=== PATIENT | male | born 1945 | race Caucasian/White ===

== ENCOUNTER 2016-11-22 10:18 | Inpatient (IN) | payer OTHER, MEDICARE ==
[~2016-11-22] VITALS: Ht 162.6 cm; Wt 177.2 kg
[2016-11-22] VITALS (10 sets, daily range): BP systolic 114–161; BP diastolic 50–67; PULSE 82–90; RESP 18–22; TEMP 96.9–99.7; O2SAT 91–98
[~2016-11-22 10:18] MED LIST: ALBU1AER INH; CLOP75 PO; GLUMETZA PO; HUMALOG SQ; LANTUSP SQ; METO100T PO; NIAS10004 PO; VASO10TA8 PO; ZITH500T PO
[2016-11-22] MEDS ORDERED: PANT40TA3 PO (10:54)
[2016-11-22] MEDS ORDERED: FERR325T PO (10:54)
[2016-11-22] MEDS ORDERED: FLUT1INH7 INH (10:54)
[2016-11-22] MEDS ORDERED: PLAV75TA29 PO (10:54)
[2016-11-22] MEDS ORDERED: CHOL1CHW5 CHEW (10:54)
[2016-11-22] MEDS ORDERED: AMLO10TA2 PO (10:54)
[2016-11-22] MEDS ORDERED: ASPI1TAB69 PO (10:54)
[2016-11-22] MEDS ORDERED: FURO20TA PO (10:54)
[2016-11-22] MEDS ORDERED: ATOR20TA15 PO (10:54)
[2016-11-22] MEDS ORDERED: TOPR50TA PO (10:54)
[2016-11-22] MEDS ORDERED: PANTOPRAZOLE INJ 80 MG in SODIUM CHLORIDE 0.9% INJ 100 ML IV SCH (11:00)
[2016-11-22] MEDS ORDERED: PANTOPRAZOLE INJ 80 MG in SODIUM CHLORIDE 0.9% INJ 35 ML IV ONE (11:00)
[2016-11-22] MEDS ORDERED: SODIUM CHLORIDE 0.9% FLUSH 10 ML FLUSH IVF PRN (11:00)
[2016-11-22] MEDS ORDERED: humalog (11:05)
[2016-11-22] MEDS ORDERED: LANTUS2P SQ (11:05)
[2016-11-22 11:20] LABS: BASOPHIL # 0.1 TH/MM3 (0-0.2); BASOPHIL % 0.5 % (0.0-2.0); EOSINOPHIL # 0.1 TH/MM3 (0-0.4); EOSINOPHIL % 0.8 % (0.0-4.0); HEMATOCRIT 25.2 % (39.0-51.0); HEMO FLAGS DIFF FINAL; LYMPH % 11.3 % (9.0-44.0); LYMPHOCYTE # 1.3 TH/MM3 (1.0-4.8); MEAN CELL VOLUME 94.9 FL (80.0-100.0); MEAN CORPUSCULAR HEMOGLOBIN 30.7 PG (27.0-34.0); MEAN CORPUSCULAR HGB CONC 32.4 % (32.0-36.0); MONO % 6.5 % (0.0-8.0); NEUT % 80.9 % (16.0-70.0); PLATELET COUNT 180 TH/MM3 (150-450); RED BLOOD COUNT 2.66 MIL/MM3 (4.50-5.90); RED CELL DISTRIBUTION WIDTH 15.8 % (11.6-17.2); WHITE BLOOD COUNT 11.2 TH/MM3 (4.0-11.0)
[2016-11-22 11:36] LABS: CHLORIDE 91 MEQ/L (98-107); POTASSIUM 4.5 MEQ/L (3.5-5.1); SODIUM (NA) 133 MEQ/L (136-145)
[2016-11-22 11:40] LABS: ANION GAP 11 MEQ/L (5-15); BICARBONATE 31.5 MEQ/L (21.0-32.0); BLOOD UREA NITROGEN 29 MG/DL (7-18)
[2016-11-22 11:41] LABS: APTT (PATIENT) 28.7 SEC (24.3-30.1)
[2016-11-22 11:43] LABS: ALT (GPT) 36 U/L (12-78); AST (GOT) 29 U/L (15-37); GLOMERULAR FILTRATION RATE 40 ML/MIN (>89)
[2016-11-22 11:45] LABS: TOTAL BILIRUBIN ADULT 0.4 MG/DL (0.2-1.0)
--- NOTE | 2016-11-22 12:04 | PD ---
HPI Chief Complaint: GI Complaint Time Seen by Provider: 10:45 Travel History International Travel<30 days: No Contact w/Intl Traveler<30days: No Traveled to known affect area: No History of Present Illness HPI 71-year-old male presents with rectal bleeding and abdominal pain. He states he has history where he's had to have multiple blood transfusions in the past from a bleeding ulcer. Quality of bleeding is black stool. Severity is past couple of days. He is from [place] and will be here for 2 more days. He is on Plavix in terms of blood thinner medication. Quality of pain is crampy. Location is diffuse. He denies specific modifying factors. His helps supplement history. She states he had 3 units of blood transfused in August when he had issues with bleeding with a blood level of 5. She states at that time he had an ulcer and they put him on Protonix. She states he didn't take any of his morning medications this morning. That includes his U500 insulin which she takes 20 units in the morning 20 units Sunday and 16 at night with his Lantus PFSH Past Medical History Hx Anticoagulant Therapy: Yes (plavix) Arthritis: Yes Cardiovascular Problems: Yes (htn on meds, UT, stents, valve replacements) High Cholesterol: Yes Congestive Heart Failure: Yes (just newly put on a diuretic) COPD: Yes Cerebrovascular Accident: Yes (tia) Coronary Artery Disease: Yes Diabetes: Yes (type 1) Gastrointestinal Disorders: Yes (ulcer) GERD: Yes Hypertension: Yes Respiratory: Yes (copd, oxygen at 3 lpm) Myocardial Infarction: Yes Sleep Apnea: Yes Tetanus Vaccination: Unknown Past Surgical History AICD: No Appendectomy: No Arteriovenous Shunt: No Cardiac Surgery: Yes (stents x 3) Cholecystectomy: Yes Coronary Artery Bypass Graft: Yes (x2 aortic valve replacement) Ear Surgery: No Endocrine Surgery: No Eye Surgery: Yes (eye surgery lens replacement x 2) Genitourinary Surgery: No Gynecologic Surgery: No Insulin Pump: No Joint Replacement: Yes (left knee) Oral Surgery: No Pacemaker: No Thoracic Surgery: Yes (heart valve/bypass) Social History Alcohol Use: No Tobacco Use: No Substance Use: No Allergies-Medications (Allergen,Severity, Reaction): Coded Allergies: No Known Allergies (Verified , 11/15/09) Reported Meds & Prescriptions Reported Meds & Active Scripts Active Reported [humalog] Lantus Inj (Insulin Glargine) 1,000 Unit/10 Ml Vial 100 Units SQ HS Breo Ellipta Inh (Fluticasone/Vilanterol) 200-25 Mcg/Act Inh 1 Puff INH DAILY Use daily at the same time. Vitamin D3 (Cholecalciferol) 2,000 Unit Chew 2,000 Units CHEW DAILY Atorvastatin (Atorvastatin Calcium) 20 Mg Tab 20 Mg PO HS Toprol XL (Metoprolol Succinate) 50 Mg Tab 75 Mg PO DAILY Pantoprazole (Pantoprazole Sodium) 40 Mg Tab 40 Mg PO DAILY Amlodipine (Amlodipine Besylate) 10 Mg Tab 10 Mg PO DAILY Plavix (Clopidogrel Bisulfate) 75 Mg Tab 75 Mg PO DAILY Furosemide 20 Mg Tab 20 Mg PO DAILY Ferrous Sulfate 325 Mg Tab 325 Mg PO DAILY Aspirin 81 Mg Tabdr 81 Mg PO DAILY Review of Systems Except as stated in HPI: all other systems reviewed are Neg Physical Exam Narrative GENERAL: Well-nourished, well-developed patient. SKIN: Warm and dry. Pale HEAD: Normocephalic and atraumatic. EYES: No injection or drainage. ENT: No nasal drainage noted. NECK: Supple, trachea midline. CARDIOVASCULAR: Regular rate and rhythm RESPIRATORY: No increased effort. No accessory muscle use. GASTROINTESTINAL: Abdomen soft, mild tenderness diffusely, nondistended. No rebound or guarding RECTAL EXAM: Performed with anchorer and after permission. No large external hemorrhoid or fissure, stool is dark brown NEUROLOGICAL: Awake and alert. Moves all extremities. Normal speech. Data Data Last Documented VS Vital Signs Date Time Temp Pulse Resp B/P Pulse Ox O2 Delivery O2 Flow Rate FiO2 11/22/16 12:35 82 22 140/51 95 Nasal Cannula 2 11/22/16 10:26 99.7 Orders Complete Blood Count With Diff (11/22/16 10:49) Comprehensive Metabolic Panel (11/22/16 10:49) Lipase (11/22/16 10:49) Prothrombin Time / Inr (Pt) (11/22/16 10:49) Act Partial Throm Time (Ptt) (11/22/16 10:49) Type And Screen (11/22/16 10:49) Ecg Monitoring (11/22/16 10:49) Iv Access Insert/Monitor (11/22/16 10:49) Oximetry (11/22/16 10:49) Sodium Chloride 0.9% Flush (Ns Flush) (11/22/16 11:00) Ct Abd/Pel W Iv Contrast(Rout) (11/22/16 ) Pantoprazole Inj (Protonix Inj) (11/22/16 11:00) Pantoprazole Inj (Protonix Inj) (11/22/16 11:00) Chest, Single Ap (11/22/16 ) Iodixanol 320 Inj (Rad Ct) (Visipaque 32 (11/22/16 13:16) Insulin Human Regular Inj (Novolin R Inj (11/22/16 13:30) Admit Order (Ed Use Only) (11/22/16 13:30) Consult Gastroenterology (11/22/16 ) Labs Laboratory Tests Test 11/22/16 11:00 White Blood Count 11.2 TH/MM3 Red Blood Count 2.66 MIL/MM3 Hemoglobin 8.2 GM/DL Hematocrit 25.2 % Mean Corpuscular Volume 94.9 FL Mean Corpuscular Hemoglobin 30.7 PG Mean Corpuscular Hemoglobin 32.4 % Concent Red Cell Distribution Width 15.8 % Platelet Count 180 TH/MM3 Mean Platelet Volume 9.9 FL Neutrophils (%) (Auto) 80.9 % Lymphocytes (%) (Auto) 11.3 % Monocytes (%) (Auto) 6.5 % Eosinophils (%) (Auto) 0.8 % Basophils (%) (Auto) 0.5 % Neutrophils # (Auto) 9.0 TH/MM3 Lymphocytes # (Auto) 1.3 TH/MM3 Monocytes # (Auto) 0.7 TH/MM3 Eosinophils # (Auto) 0.1 TH/MM3 Basophils # (Auto) 0.1 TH/MM3 CBC Comment DIFF FINAL Differential Comment Prothrombin Time 11.0 SEC Prothromb Time International 1.0 RATIO Ratio Activated Partial 28.7 SEC Thromboplast Time Sodium Level 133 MEQ/L Potassium Level 4.5 MEQ/L Chloride Level 91 MEQ/L Carbon Dioxide Level 31.5 MEQ/L Anion Gap 11 MEQ/L Blood Urea Nitrogen 29 MG/DL Creatinine 1.70 MG/DL Estimat Glomerular Filtration 40 ML/MIN Rate Random Glucose 665 MG/DL Calcium Level 8.3 MG/DL Total Bilirubin 0.4 MG/DL Aspartate Amino Transf 29 U/L (AST/SGOT) Alanine Aminotransferase 36 U/L (ALT/SGPT) Alkaline Phosphatase 134 U/L Total Protein 6.7 GM/DL Albumin 2.7 GM/DL Lipase 90 U/L Blood Type O POSITIVE Antibody Screen NEGATIVE MDM Medical Decision Making Medical Screen Exam Complete: Yes Emergency Medical Condition: Yes Medical Record Reviewed: Yes (past history confirm) Interpretation(s) CBC & BMP Diagram 11/22/16 11:00 Last 24 hours Impressions Abdomen/Pelvis CT 11/22/16 0000 Signed Impressions: Service Date/Time: Tuesday, November 22, 2016 12:07 - CONCLUSION: 1. No definite abnormality to explain the patient's abdominal pain is identified. 2. No findings to indicate bowel obstruction are seen. Humza Omer MD Differential Diagnosis Anemia, ulcer, diverticulosis, diverticulitis Narrative Course Will check blood work, CT scan and dose with Protonix and reevaluate ct abdomen without emergent findings, will discuss with gi and admit to the hospital for monitoring; patient and updated and agree to admission HemaPrompt Point of Care Internal Pos. & Neg. Controls: Passed Fecal Specimen Occult Blood: Positive Physician Communication Physician Communication dr dejesus agrees to admit, requests 5 units regular insulin IV and states will take from there dr fenton states will see patient, I told her I will keep npo for now Diagnosis Primary Impression: Rectal bleeding Additional Impressions: Anemia Qualified Code: D64.9 - Anemia, unspecified type Renal insufficiency Hyperglycemia due to type 1 diabetes mellitus Ama Rivera MD Nov 22, 2016 12:04 Diagnosis Primary Impression: Rectal bleeding Additional Impression: Anemia Ama Rivera MD Nov 22, 2016 12:04
[2016-11-22 12:20] LABS: ALKALINE PHOSPHATASE 134 U/L (45-117)
--- NOTE | 2016-11-22 12:49 | RADHPO ---
EXAM DATE/TIME: 11/22/2016 12:07 [facility] COMPARISON: No previous studies available for comparison. INDICATIONS : Abdominal pain and black stool. IV CONTRAST: 50 cc Visipaque (iodixanol) IV ORAL CONTRAST: No oral contrast ingested. RADIATION DOSE: 11.68 CTDIvol (mGy) MEDICAL HISTORY : Gastroesophageal reflux disease. Chronic obstructive pulmonary disease. Congestive heart failure.Diab etes. Coronary artery disease. Hypertension. Aortic valve replacement. SURGICAL HISTORY : Cholecystectomy. CABGStents ENCOUNTER: Initial ACUITY: 1 week PAIN SCALE: 9/10 LOCATION: All quadrants. TECHNIQUE: Volumetric scanning of the abdomen and pelvis was performed. Using automated exposure control and ad justment of the mA and/or kV according to patient size, radiation dose was kept as low as reasonably achievable to obtain optimal diagnostic quality images. FINDINGS: The limited portable and is visualized is clear. The appearance of the liver, spleen, pancreas, adrenal glands and kidneys is within normal limits. Th ere is no retroperitoneal lymphadenopathy. No free air or free fluid is identified. The The visualized loops of small and large bowel in the upper abdomen is unremarkable. There is no free fluid within the pelvis. There is no iliac or inguinal adenopathy. The visualized bony structures demonstrate degenerative changes but are otherwise intact. CONCLUSION: 1. No definite abnormality to explain the patient's abdominal pain is identified. 2. No findings to indicate bowel obstruction are seen. Humza Omer MD on November 22, 2016 at 12:35 Board Certified Radiologist. This report was verified electronically.
[2016-11-22] MEDS ORDERED: IODIXANOL 320 MG/ML 10 ML VIAL (for Rad CT) IV ONE (13:16)
[2016-11-22] MEDS ORDERED: INSULIN HUMAN REGULAR 1,000 UNITS/10 ML VIAL IV PUSH ONE (13:30)
--- NOTE | 2016-11-22 13:43 | RADHPO ---
EXAM DATE/TIME: 11/22/2016 12:45 [facility] COMPARISON: CHEST SINGLE AP, November 15, 2009, 19:24. INDICATIONS : Short of breath, heart palpataions. Recently diagnosed with nodules in upper right lung & lower left lung to be biopsied back home in [place]. MEDICAL HISTORY : Hypertension. Myocardial infarction. Hypercholesterolemia. TIA. CHF. CAD. COPD. Emphysema.. Sleep apnea. GERD. Arthritis. Diabetic. Bleeding ulcers. SURGICAL HISTORY : CABG. Cholecystectomy. Total knee replacement, left. Cataract. Cardiac stents. Aortic valve replaceme nts. ENCOUNTER: Initial ACUITY: 2 days PAIN SCORE: 0/10 LOCATION: chest FINDINGS: The patient is post median sternotomy. The heart is enlarged. There are chronic appearing interstitia l changes. Lungs otherwise clear. The visualized bony structures are grossly intact. CONCLUSION: 1. Cardiomegaly and chronic interstitial changes. No acute abnormality. Humza Omer MD on November 22, 2016 at 13:35 Board Certified Radiologist. This report was verified electronically.
[2016-11-22] MEDS ORDERED: GLUCAGON 1 MG/ML VIAL OTHER PRN (13:45)
[2016-11-22] MEDS ORDERED: METOCLOPRAMIDE HCL 10 MG/2 ML VIAL IV PUSH PRN (13:45)
[2016-11-22] MEDS ORDERED: ONDANSETRON HCL 4 MG/2 ML VIAL IVP PRN (13:45)
[2016-11-22] MEDS ORDERED: ACETAMINOPHEN 325 MG TAB PO PRN (13:45)
[2016-11-22] MEDS ORDERED: DEXTROSE 50% IN WATER 50 ML VIAL(D50) IV PUSH PRN (13:45)
[2016-11-22] MEDS ORDERED: NALOXONE HCL 0.4 MG/ML AMP IV PRN (13:45)
[2016-11-22] MEDS ORDERED: MORPHINE SULFATE 4 MG/ML INJ IV PRN (13:45)
[2016-11-22] MEDS ORDERED: SODIUM CHLORIDE 0.9% FLUSH 10 ML FLUSH IV FLUSH PRN (13:45)
[2016-11-22] MEDS ORDERED: SODIUM CHLOR 0.9% 1000 ML INJ 1,000 ML IV SCH (14:00)
[2016-11-22 14:35] LABS: HEMATOCRIT 25.4 % (39.0-51.0); REVIEW FLAG FINAL
[2016-11-22] MEDS: INSULIN DETEMIR 100 UNITS/ML VIAL SQ SCH ×2 (14:41→20:56)
--- NOTE | 2016-11-22 16:52 | HHI.HP ---
[facility] Non-Staff Admission Diagnosis gi bleed, diabetes poor control Diagnoses: Travel History International Travel<30 Days: No Contact w/Intl Traveler <30 Da: No Traveled to Known Affected Are: No History of Present Illness This is a 71 year-old female with past medical history of coronary artery disease status post CABG, GI bleed, congestive heart failure, type 2 diabetes, COPD on 2 L oxygen continuously, bovine aortic valve replacement 2008 who presents with a history of melena and black stools ongoing for 3 weeks. It should be noted that the patient is an extremely poor historian. He states that his girlfriend knows most of his health issues. He's not sure why he was prompted to come to the ER today since this is she's been going on for 3 weeks. He denies any dizziness lightheadedness or syncope. Denies any hematemesis. He thinks he may have had a history of bleeding ulcers in the past. Per the ED physician discussion with his girlfriend, the patient has had GI bleed in the past with hemoglobin down to 5 and was placed on a PPI for a gastric ulcer. The patient states that his stool was runny. The patient states he has chronic shortness of breath but this is not worse than usual. The patient also had some cramping. Umbilical abdominal pain earlier today but this has resolved. Symptoms are moderate, no provocative or alleviating factors. Review of Systems ROS Limitations: Poor Historian Constitutional: DENIES: Fever, Chills Eyes: DENIES: Diplopia, Vision loss Ears, nose, mouth, throat: DENIES: Throat pain, Odynophagia Respiratory: COMPLAINS OF: Shortness of breath, DENIES: Cough Gastrointestinal: COMPLAINS OF: Abdominal pain, Black stools, Bloody stools, DENIES: Constipation, Nausea, Vomiting Genitourinary: DENIES: Hematuria, Dysuria Musculoskeletal: DENIES: Back pain, Neck pain Integumentary: DENIES: Rash Hematologic/lymphatic: DENIES: Lymphadenopathy Neurologic: DENIES: Abnormal gait, Headache Psychiatric: DENIES: Anxiety, Confusion Past Family Social History Past Medical History Coronary artery disease status post bypass Type 2 diabetes Bovine aortic valve in 2009 COPD and chronic respiratory failure on 2 L oxygen continuously Chronic kidney disease Anemia History of gastric ulcers Hypertension GERD CHF Reported Medications Allergies Coded Allergies Type Severity Reaction Last Updated Verified No Known Allergies 11/15/09 Yes Active Scripts Medications Dose Route/Sig Days Date Category Dose Instructions [humalog] 11/22/16 Reported Lantus Inj (Insulin Glargine) 1,000 Unit/10 Ml Vial 100 Units SQ HS 11/22/16 Reported Breo Ellipta Inh (Fluticasone/Vilanterol) 200-25 Mcg/Act Inh 1 Puff INH DAILY 11/22/16 Reported Use daily at the same time. Vitamin D3 (Cholecalciferol) 2,000 Unit Chew 2,000 Units CHEW DAILY 11/22/16 Reported Atorvastatin (Atorvastatin Calcium) 20 Mg Tab 20 Mg PO HS 11/22/16 Reported Toprol XL (Metoprolol Succinate) 50 Mg Tab 75 Mg PO DAILY 11/22/16 Reported Pantoprazole (Pantoprazole Sodium) 40 Mg Tab 40 Mg PO DAILY 11/22/16 Reported Amlodipine (Amlodipine Besylate) 10 Mg Tab 10 Mg PO DAILY 11/22/16 Reported Plavix (Clopidogrel Bisulfate) 75 Mg Tab 75 Mg PO DAILY 11/22/16 Reported Furosemide 20 Mg Tab 20 Mg PO DAILY 11/22/16 Reported Ferrous Sulfate 325 Mg Tab 325 Mg PO DAILY 11/22/16 Reported Aspirin 81 Mg Tabdr 81 Mg PO DAILY 11/22/16 Reported Allergies: Coded Allergies: No Known Allergies (Verified , 11/15/09) Family History Reviewed and noncontributory Social History Positive tobacco use in the past. He lives in [place]. Physical Exam Vital Signs Vital Signs Date Time Temp Pulse Resp B/P Pulse Ox O2 Delivery O2 Flow Rate FiO2 11/22/16 16:05 98.5 83 20 131/50 97 Nasal Cannula 2 11/22/16 15:50 84 18 161/67 97 Nasal Cannula 2 11/22/16 15:50 98.6 84 20 161/67 97 Nasal Cannula 11/22/16 14:47 83 18 136/67 94 Nasal Cannula 2 11/22/16 12:35 82 22 140/51 95 Nasal Cannula 2 11/22/16 11:11 98 2 11/22/16 11:06 18 11/22/16 10:26 99.7 88 20 141/63 91 Physical Exam GENERAL: This is an obese male in no apparent distress. SKIN: Warm and dry. HEAD: Normocephalic. EYES: No scleral icterus. No injection or drainage. NECK: Supple, trachea midline. No JVD or lymphadenopathy. CARDIOVASCULAR: Regular rate and rhythm without murmurs, gallops, or rubs. RESPIRATORY: Breath sounds equal bilaterally. Breath sounds coarse. No accessory muscle use on 2 L oxygen. GASTROINTESTINAL: Bowel sounds present. Abdomen soft, non-tender, nondistended. EXTREMITIES: 1+ edema of ankles bilaterally. NEUROLOGICAL: Awake, alert, and oriented x 3. Non-focal. Laboratory Laboratory Tests Test 11/22/16 11/22/16 11/22/16 11:00 13:36 14:16 White Blood Count 11.2 Red Blood Count 2.66 Hemoglobin 8.2 8.2 Hematocrit 25.2 25.4 Mean Corpuscular Volume 94.9 Mean Corpuscular Hemoglobin 30.7 Mean Corpuscular Hemoglobin 32.4 Concent Red Cell Distribution Width 15.8 Platelet Count 180 Mean Platelet Volume 9.9 Neutrophils (%) (Auto) 80.9 Lymphocytes (%) (Auto) 11.3 Monocytes (%) (Auto) 6.5 Eosinophils (%) (Auto) 0.8 Basophils (%) (Auto) 0.5 Neutrophils # (Auto) 9.0 Lymphocytes # (Auto) 1.3 Monocytes # (Auto) 0.7 Eosinophils # (Auto) 0.1 Basophils # (Auto) 0.1 CBC Comment DIFF FINAL Differential Comment Prothrombin Time 11.0 Prothromb Time International 1.0 Ratio Activated Partial 28.7 Thromboplast Time Sodium Level 133 Potassium Level 4.5 Chloride Level 91 Carbon Dioxide Level 31.5 Anion Gap 11 Blood Urea Nitrogen 29 Creatinine 1.70 Estimat Glomerular Filtration 40 Rate Random Glucose 665 Calcium Level 8.3 Total Bilirubin 0.4 Aspartate Amino Transf 29 (AST/SGOT) Alanine Aminotransferase 36 (ALT/SGPT) Alkaline Phosphatase 134 Total Protein 6.7 Albumin 2.7 Lipase 90 Blood Type O POSITIVE O POSITIVE Antibody Screen NEGATIVE Crossmatch Leukocyte-Reduced Red Blood Cells Blood Bank Comment Result Diagram: 11/22/16 1416 11/22/16 1100 Imaging Last Impressions Chest X-Ray 11/22/16 0000 Signed Impressions: Service Date/Time: Tuesday, November 22, 2016 12:45 - CONCLUSION: 1. Cardiomegaly and chronic interstitial changes. No acute abnormality. Humza Omer MD Abdomen/Pelvis CT 11/22/16 0000 Signed Impressions: Service Date/Time: Tuesday, November 22, 2016 12:07 - CONCLUSION: 1. No definite abnormality to explain the patient's abdominal pain is identified. 2. No findings to indicate bowel obstruction are seen. Humza Omer MD Assessment and Plan Problem List: (1) GI bleeding ICD Code: K92.2 Status: Acute (2) CHF (congestive heart failure) ICD Code: I50.9 Status: Acute (3) Anemia due to acute blood loss ICD Code: D62 Status: Acute (4) CKD (chronic kidney disease) stage 3, GFR 30-59 ml/min ICD Code: N18.3 Status: Acute (5) KATHLEEN (acute kidney injury) ICD Code: N17.9 Status: Acute (6) DM type 2, uncontrolled, with renal complications ICD Code: E11.29 Status: Acute (7) CAD (coronary artery disease) ICD Code: I25.10 Status: Acute Assessment and Plan -GI bleeding with melena and black stools. Symptoms ongoing for 3 weeks as per the patient. Hemoglobin is 8. He is hemodynamically stable. We'll transfuse 1 unit packed red blood cells given his cardiac history. H&H every 6 hours. Consult GI. Protonix drip. He does have history of peptic ulcer disease with hemoglobin down to 5 in the past. Obviously we'll have to hold aspirin and Plavix at this time. Clear liquid diet. -Type 2 diabetes - with hyperglycemia. Given 5 units of regular insulin in the ED. We'll give Levemir 10 units subcutaneous twice a day to start now. Medium sliding scale insulin with Accu-Cheks. He is on u500 at home as well as Lantus. -Coronary artery disease status post bypass - hold aspirin and Plavix but continue Coreg. -Bovine aortic valve in 2008-hold aspirin. -COPD and chronic respiratory failure on 2 L oxygen continuously - continue O2. Duo nebs when necessary. -Chronic kidney disease - with possible acute kidney injury. We'll repeat BMP in the morning. -Anemia of acute blood loss due to GI bleeding. Monitor H&H every 6 hours. -Hypertension -continue home medications with hold parameters. -GERD - continue PPI. -CHF - avoid IV fluids. Monitor for any overload. He appears compensated. Last known echo was in 2008 showed preserved EF. -DVT prophylaxis with SCDs. Shani Christiansen MD Nov 22, 2016 16:52
[2016-11-22] MEDS: INSULIN ASPART SUPPLEMENTAL SCALE SQ SCH ×2 (17:14→20:59)
[2016-11-22 20:20] LABS: HEMATOCRIT 26.6 % (39.0-51.0); REVIEW FLAG FINAL
[2016-11-22] MEDS: PANTOPRAZOLE INJ 80 MG in SODIUM CHLORIDE 0.9% INJ 100 ML IV SCH (20:55)
[2016-11-22] MEDS: SODIUM CHLORIDE 0.9% FLUSH 10 ML FLUSH IV FLUSH SCH (20:55)
[2016-11-22] MEDS: ATORVASTATIN 20 MG TAB PO SCH (20:56)
[2016-11-23] VITALS (8 sets, daily range): BP systolic 94–184; BP diastolic 51–75; PULSE 77–96; RESP 15–20; TEMP 96.5–97.8; O2SAT 95–98
[2016-11-23] MEDS: PANTOPRAZOLE INJ 80 MG in SODIUM CHLORIDE 0.9% INJ 100 ML IV SCH ×2 (01:45→11:45)
[2016-11-23 02:04] LABS: HEMATOCRIT 27.4 % (39.0-51.0); REVIEW FLAG FINAL
[2016-11-23] MEDS: INSULIN ASPART SUPPLEMENTAL SCALE SQ SCH ×4 (06:21→21:09)
[2016-11-23 06:29] LABS: HEMATOCRIT 28.1 % (39.0-51.0); REVIEW FLAG FINAL
[2016-11-23 06:35] LABS: POTASSIUM 4.2 MEQ/L (3.5-5.1)
[2016-11-23 06:38] LABS: BICARBONATE 34.9 MEQ/L (21.0-32.0)
--- NOTE | 2016-11-23 07:34 | MB ---
cc: SYDNEE LUQUE M.D. DATE OF CONSULTATION 11/23/2016 DATE OF [address] Christiansen REASON FOR CONSULTATION Anemia, melena HISTORY Mr. Hinds is a 71-year-old gentleman with multiple medical problems admitted to the hospital with uncontrolled diabetes mellitus for two to three weeks. The patient is a very poor historian. He has multiple medical problems. Information is taken mostly from the chart. According to his family, he had a history of similar issues before and he was given two units of PRBC at that time. He was diagnosed with a gastric ulcer. The patient also reports some loose stools dark in nature. Denies any nausea or vomiting. He did have some abdominal pain which resolved at this time. CT of the abdomen and pelvis was negative. PAST MEDICAL HISTORY 1. CABG 2. CHF 3. Type 2 diabetes 4. COPD on two liters oxygen. 5. Bovine aortic valve replacement in 2008 6. History of peptic ulcer disease. 7. Morbid obesity 8. Chronic kidney disease 9. Reflux MEDICATIONS 1. Lantus 2. Brilinta 3. Vitamin D3 4. Atorvastatin 5. Toprol 6. Protonix 7. Amlodipine 8. Plavix 9. Lasix 10. Iron 11. Aspirin ALLERGIES No known allergies. FAMILY HISTORY No family history of colon cancer or any other GI pathology. SOCIAL HISTORY He denies any drug use. He has a history of smoking, no alcohol. ALLERGIES No known allergies. REVIEW OF SYSTEMS He denies any fever or chills, weight loss or weight gain. ENT: No alteration in baseline hearing or visual acuity PULMONARY: He does have shortness of breath. Denies any cough. CARDIOVASCULAR: Denies any palpitations. He does have some pedal edema and shortness of breath. GASTROINTESTINAL: As above. GENITOURINARY: Denies dysuria or hematuria. HEMATOLOGIC: Does have history of anemia and no bleeding disorder. SKIN: No alteration in baseline skin lesion. NEUROLOGIC: No history of TIA or CVA kind of symptoms. PHYSICAL EXAM On clinical exam, he is sitting in bed in mild distress on oxygen at two liters. VITAL SIGNS: Temperature is 96.9, pulse 88, respirations 20, blood pressure 144/63, pulse ox 98. HEAD, EYES, EARS, NOSE, AND THROAT: PERRLA, pale. NECK: No JVD or lymphadenopathy. CHEST: Clear to auscultation and palpation. CARDIOVASCULAR: Sinus with no murmur. ABDOMEN: Obese. Bowel sounds are present. CREDIT UNION MANAGER: Awake, alert, oriented x3. No focal signs identified. He has pedal edema 1+. LABORATORY DATA His hemoglobin on admission was 8.2 currently 9.4. After one unit of PRBC, PT/INR normal. His glucose was 665 yesterday, currently pending. His BUN 29, creatinine 1.7, alkaline phosphatase 134. His CT of the abdomen and pelvis was suggestive of normal exam. IMPRESSION Mr. Merino is a 71-year-old gentleman with multiple medical problems admitted to the hospital with uncontrolled diabetes and melanotic stools for the last three weeks. History of peptic ulcer disease. The patient on Plavix and Aspirin, possible recurrent peptic ulcer disease hemodynamically stable. No indication of active bleed at this time. Elevated alkaline phosphatase most likely secondary to fatty liver. RECOMMENDATIONS Monitor H&H closely. Upper endoscopy today if cleared by Anesthesia. Transfuse p.r.n. Protonix H&H monitoring. We are going to send additional blood work for evaluation of elevated alkaline phosphatase. Supportive care. I would like to thank Dr. Christiansen for referring him to our office for consultation. The risks and benefits and the above procedures were discussed with the patient and he is agreement. MD TAMMY May/LALITO /7:07 AM /7:15 AM [facility]ay
[2016-11-23] MEDS ORDERED: PROPOFOL 200 MG/20 ML AMP IV ONE (07:44)
--- NOTE | 2016-11-23 07:54 | GIPROC ---
[address], [address] EGD PROCEDURE REPORT EXAM DATE: 11/23/2016 PATIENT NAME: Alexis Merino MR #: [id number] BIRTHDATE: 1945 ATTENDING: Joycelyn Li MD ORDER #: [id number] TYPE COPY EXAMINER: Lucio Paulino and Yessica Celestin STATUS: inpatient INDICATIONS: The patient is a 71 yr old male here for an EGD due to melena PROCEDURE PERFORMED: EGD, diagnostic MEDICATIONS: None and Per Anesthesia. TOPICAL ANESTHETIC: Cetacaine [place] CONSENT: The patient understands the risks and benefits of the procedure and understands that these risks include, but are not limited to: sedation, allergic reaction, infection, perforation and/or bleeding. Alternative means of evaluation and treatment include, among others: physical exam, x-rays, and/or surgical intervention. The patient elects to proceed with this endoscopic procedure. medical equipment was checked for proper function. Hand hygiene and appropriate measures for infection prevention was taken. After the risks, benefits and alternatives of the procedure were thoroughly explained, Informed consent was verified, confirmed and timeout was successfully executed by the treatment team. The patient was anesthetized with topical anesthesia and the [employer] [id number] endoscope was introduced through the mouth and advanced to the second portion of the duodenum. Retroflexed views revealed a hiatal hernia The gastroscope was then slowly withdrawn and removed. White deposits -possible tio -diflucan gastritis-no biopsy due to asa/plavix. ADVERSE EVENTS: There were no complications. IMPRESSIONS: 1. White deposits -possible tio -diflucan gastritis-no biopsy due to asa/plavix 2. Retroflexed views revealed a hiatal hernia RECOMMENDATIONS: 1. Anti-reflux regimen 2. Continue PPI 3. Start PPI 4. If further bleeding bleeding scan ba enema-high risk for colonoscopy as per anesthesia PATIENT CONDITION: stable DISPOSITION: Inpatient REPEAT EXAM: Return as needed for EGD Joycelyn Li MD eSigned: Joycelyn Li MD 11/23/2016 7:54 AM cc:
[2016-11-23] MEDS: SODIUM CHLORIDE 0.9% FLUSH 10 ML FLUSH IV FLUSH SCH ×2 (09:00→21:06)
[2016-11-23] MEDS: METOPROLOL SUCCINATE 25 MG EXTENDED RELEASE TAB PO SCH (10:08)
[2016-11-23] MEDS: FUROSEMIDE 20 MG TAB PO SCH (10:08)
[2016-11-23] MEDS: FERROUS SULFATE 325 MG (65 MG ELEMENTAL IRON) TAB PO SCH (10:08)
[2016-11-23] MEDS: INSULIN DETEMIR 100 UNITS/ML VIAL SQ SCH ×2 (10:08→21:06)
--- NOTE | 2016-11-23 10:19 | EKG ---
Date Performed: 11/23/2016 Time Performed: 06:02:30 PTAGE: 71 years EKG: Sinus rhythm with PVC(s) Possible inferior infarct - age undetermined Ant/septal and lateral ST-T changes are non specific Abnormal ECG PREVIOUS TRACING : 11/15/2009 19.11 Compared to the previous tracing pvc is new DOCTOR: Steve Marte Interpretating Date/Time 11/23/2016 10:18:16
[2016-11-23] MEDS ORDERED: INSULIN DETEMIR 100 UNITS/ML VIAL SQ ONE (12:15)
[2016-11-23] MEDS ORDERED: PANTOPRAZOLE SOD 40 MG DELAYED RELEASE TAB PO ONE (14:00)
[2016-11-23 14:04] LABS: HEMATOCRIT 28.1 % (39.0-51.0); REVIEW FLAG FINAL
[2016-11-23 15:07] LABS: C. DIFF EPI 027 PRESUMPTIVE NEGATIVE (NEGATIVE); C. DIFF TOXIN PCR NEGATIVE (NEGATIVE)
[2016-11-23] MEDS: FLUTICASONE 100 MCG/VILANTEROL 25 MCG INHALER INH SCH (15:13)
--- NOTE | 2016-11-23 17:56 | RADHPO ---
EXAM DATE/TIME: 11/23/2016 11:11 [facility] COMPARISON: No previous studies available for comparison. INDICATIONS : Anemia. GI bleed. FLUORO TIME: 4.1 minutes IMAGE COUNT: 30 CONTRAST: 1. Liquid Polibar Plus Barium Sulfate (105% w/v, 58% w/w) MEDICAL HISTORY : Hypertension. Congestive heart failure. Diabetes mellitus type II. : Gastroesophageal reflux dise ase. Chronic obstructive pulmonary disease. Coronary artery disease SURGICAL HISTORY : Cholecystectomy. CABG. Aortic valve replacement. Cardiac stents. ENCOUNTER: Subsequent ACUITY: 1 week PAIN SCORE: 7/10 LOCATION: Abdomen. FINDINGS: Single contrast barium enema was performed. Examination is limited by the patient's size and mobility noncontrasted reached the cecum with some reflux into the distal small bowel. There is colonic diver ticulosis, most severe in the sigmoid region. No obstructing or constricting lesions are identified. No discrete ulcerations are seen on this somewhat limited exam. CONCLUSION: Colonic diverticulosis, especially sigmoid. No obstructing or polypoid lesions identified. Mild lumin al narrowing in the sigmoid region. Herman Fish MD on November 23, 2016 at 17:50 Board Certified Radiologist. This report was verified electronically.
[2016-11-23 19:28] LABS: HEMATOCRIT 26.9 % (39.0-51.0); REVIEW FLAG FINAL
--- NOTE | 2016-11-23 19:32 | HHI.PR ---
Subjective Remarks Patient seen today around 2 PM. Says he is feeling all right. Denies a chest pain or shortness of breath. Appreciate gastroenterology assistance. Continue to monitor hemoglobin. Follow -up barium enema Hyperglycemia. Insulin adjusted. Objective Vital Signs Date Time Temp Pulse Resp B/P Pulse Ox O2 Delivery O2 Flow Rate FiO2 11/23/16 17:00 96.6 84 16 184/65 96 11/23/16 16:43 Room Air 2.00 11/23/16 16:07 96 Nasal Cannula 2.00 11/23/16 13:00 97.6 77 18 146/75 95 11/23/16 09:15 96.5 83 15 160/73 97 11/23/16 07:56 97.8 76 16 133/46 99 11/23/16 07:04 97.8 96 16 143/75 97 11/23/16 04:00 96.9 88 20 144/63 98 11/23/16 00:00 96.8 90 20 94/51 97 11/22/16 21:20 96 Nasal Cannula 2.00 11/22/16 20:00 97.4 90 20 146/66 96 11/22/16 20:00 96 Nasal Cannula 2.00 I/O 11/22/16 11/22/16 11/22/16 11/23/16 11/23/16 11/23/16 07:00 15:00 23:00 07:00 15:00 23:00 Intake Total 1439 ml 77 ml 1000 ml Output Total 250 ml 600 ml Balance -250 ml 839 ml 77 ml 1000 ml Intake Oral 240 ml 1000 ml IV Total 899 ml 77 ml Packed Cells 300 ml Output Urine Total 250 ml 600 ml # Voids 1 4 # Bowel Movements 1 2 Result Diagram: 11/23/16 1920 11/23/16 0550 Imaging Last Impressions Barium Enema 11/23/16 0000 Signed Impressions: Service Date/Time: November 11:11 - CONCLUSION: Colonic diverticulosis, especially sigmoid. No obstructing or polypoid lesions identified. Mild luminal narrowing in the sigmoid region. Herman Fish MD Chest X-Ray 11/22/16 0000 Signed Impressions: Service Date/Time: Tuesday, November 22, 2016 12:45 - CONCLUSION: 1. Cardiomegaly and chronic interstitial changes. No acute abnormality. Humza Omer MD Abdomen/Pelvis CT 11/22/16 0000 Signed Impressions: Service Date/Time: Tuesday, November 22, 2016 12:07 - CONCLUSION: 1. No definite abnormality to explain the patient's abdominal pain is identified. 2. No findings to indicate bowel obstruction are seen. Humza Omer MD Objective Remarks GENERAL: Sitting up in bed. On oxygen. Appears comfortable. Alert and oriented 3. at bedside. SKIN: Warm and dry. HEAD: Normocephalic. EYES: No scleral icterus. No injection or drainage. NECK: Supple, trachea midline. No JVD. CARDIOVASCULAR: Regular rate and rhythm without murmurs, gallops, or rubs. RESPIRATORY: Breath sounds equal bilaterally. No accessory muscle use. GASTROINTESTINAL: Abdomen soft, non-tender, nondistended. MUSCULOSKELETAL: No cyanosis, or edema. BACK: Nontender without obvious deformity. No CVA tenderness. Andrew Alanis MD Nov 23, 2016 19:32
[2016-11-23] MEDS: ATORVASTATIN 20 MG TAB PO SCH (21:05)
[2016-11-24] VITALS: BP 143/71; PULSE 82; RESP 20; TEMP 96.7; O2SAT 96
[2016-11-24] MEDS: INSULIN ASPART SUPPLEMENTAL SCALE SQ SCH (05:37)
[2016-11-24 08:00] VITALS: BP 143/68; PULSE 76; RESP 20; TEMP 95.5; O2SAT 95
[2016-11-24] MEDS: SODIUM CHLORIDE 0.9% FLUSH 10 ML FLUSH IV FLUSH SCH (09:00)
[2016-11-24] MEDS ORDERED: PANTOPRAZOLE SOD 40 MG DELAYED RELEASE TAB PO SCH (09:00)
[2016-11-24] MEDS ORDERED: FERR325T PO (09:08)
[2016-11-24] MEDS: METOPROLOL SUCCINATE 25 MG EXTENDED RELEASE TAB PO SCH (09:14)
[2016-11-24] MEDS: FERROUS SULFATE 325 MG (65 MG ELEMENTAL IRON) TAB PO SCH (09:14)
[2016-11-24] MEDS: FUROSEMIDE 20 MG TAB PO SCH (09:14)
[2016-11-24] MEDS: INSULIN DETEMIR 100 UNITS/ML VIAL SQ SCH (09:15)
[2016-11-24] MEDS: FLUTICASONE 100 MCG/VILANTEROL 25 MCG INHALER INH SCH (09:16)
[2016-11-24 09:48] LABS: AUTOMATED NEUTROPHIL # 7.8 TH/MM3 (1.8-7.7); BASOPHIL # 0.2 TH/MM3 (0-0.2); BASOPHIL % 1.6 % (0.0-2.0); EOSINOPHIL # 0.1 TH/MM3 (0-0.4); EOSINOPHIL % 1.1 % (0.0-4.0); HEMATOCRIT 29.8 % (39.0-51.0); HEMO FLAGS DIFF FINAL; LYMPH % 17.1 % (9.0-44.0); LYMPHOCYTE # 1.8 TH/MM3 (1.0-4.8); MEAN CELL VOLUME 93.8 FL (80.0-100.0); MEAN CORPUSCULAR HEMOGLOBIN 30.8 PG (27.0-34.0); MEAN CORPUSCULAR HGB CONC 32.8 % (32.0-36.0); NEUT % 73.2 % (16.0-70.0); PLATELET COUNT 162 TH/MM3 (150-450); RED BLOOD COUNT 3.17 MIL/MM3 (4.50-5.90); RED CELL DISTRIBUTION WIDTH 15.5 % (11.6-17.2); WHITE BLOOD COUNT 10.7 TH/MM3 (4.0-11.0)
--- NOTE | 2016-11-24 13:41 | HHI.GIFU ---
GI Follow-up Note Consult Follow-up Subjective: late entry, patient seen early am.Feeling better, no bleeding, hb stable.EGD, ba enema discussed with him and nurser.Awaiting to go home Objective: PHYSICAL EXAMINATION: Vitals signs stable No fever obese , on oxygen HEENT: Pupils round and reactive to light; normocephalic; atraumatic; no jaundice. Throat is clear. NECK: Neck is supple, no JVD, no lymphadenopathy. CHEST: Chest is clear to auscultation and percussion. CARDIAC: Regular rate and rhythm with no murmur gallop or rubs. ABDOMEN: Soft, nondistended, nontender; no hepatosplenomegaly; bowel sounds are present in all four quadrants, obese EXTREMITIES: No clubbing, cyanosis, or edema. SKIN: Normal; no rash; no jaundice. IVF EMBRYOLOGIST: No focal deficits; alert and oriented times three. Available Data (labs, X- Rays, Procedues) : Laboratory Tests Test 11/22/16 11/22/16 11/23/16 11/23/16 14:16 20:11 01:47 05:50 Hemoglobin 8.2 GM/DL 8.8 GM/DL 8.9 GM/DL 9.4 GM/DL Hematocrit 25.4 % 26.6 % 27.4 % 28.1 % Sodium Level 138 MEQ/L Potassium Level 4.2 MEQ/L Chloride Level 96 MEQ/L Carbon Dioxide Level 34.9 MEQ/L Anion Gap 7 MEQ/L Blood Urea Nitrogen 25 MG/DL Creatinine 1.30 MG/DL Estimat Glomerular Filtration 55 ML/MIN Rate Random Glucose 355 MG/DL Calcium Level 8.1 MG/DL Test 11/23/16 11/23/16 11/23/16 11/23/16 09:30 09:50 13:55 19:20 Stool C. difficile Toxin (PCR) NEGATIVE Stl C. difficile Toxin PRESUMPTIVE Epiderm 027 NEGATIVE Anti-Smooth Muscle Antibody Negative Hemoglobin 9.3 GM/DL 8.8 GM/DL Hematocrit 28.1 % 26.9 % Test 11/24/16 09:29 White Blood Count 10.7 TH/MM3 Red Blood Count 3.17 MIL/MM3 Hemoglobin 9.8 GM/DL Hematocrit 29.8 % Mean Corpuscular Volume 93.8 FL Mean Corpuscular Hemoglobin 30.8 PG Mean Corpuscular Hemoglobin 32.8 % Concent Red Cell Distribution Width 15.5 % Platelet Count 162 TH/MM3 Mean Platelet Volume 9.5 FL Neutrophils (%) (Auto) 73.2 % Lymphocytes (%) (Auto) 17.1 % Monocytes (%) (Auto) 7.0 % Eosinophils (%) (Auto) 1.1 % Basophils (%) (Auto) 1.6 % Neutrophils # (Auto) 7.8 TH/MM3 Lymphocytes # (Auto) 1.8 TH/MM3 Monocytes # (Auto) 0.8 TH/MM3 Eosinophils # (Auto) 0.1 TH/MM3 Basophils # (Auto) 0.2 TH/MM3 CBC Comment DIFF FINAL Differential Comment ASSESSMENT/PLAN: [id number]-m/p egd.colonoscopy melena-resolved, patient on anticoagulation Recommendations ppi continue anticoagulation as per primary monitor hb/ht closely ok to dc home from gi point if dc fu office, may need capsule endoscopy It was a pleasure seeing Alexis Merino. Thank you for this consult. Entered by: Joycelyn Fernandez MD Nov 24, 2016 13:41
--- NOTE | 2016-11-25 08:55 | HHI.PR ---
Subjective Remarks Date of service 11/24. Patient seen in the morning prior to discharge. He says he is feeling well. Denies any chest pain or shortness of breath. says he is at baseline. We discussed risks and benefits of continuing aspirin and Plavix, given that he has had a TIA in the past, as well as a GI bleed recently.. Her extensive discussion, have decided to continue aspirin, hold off on Plavix until patient can follow-up with primary care and cardiology to decide on continuing treatment. conveys understanding. Objective I/O 11/24/16 11/24/16 11/24/16 11/25/16 11/25/16 11/25/16 07:00 15:00 23:00 07:00 15:00 23:00 Intake Total 720 ml Balance 720 ml Intake Oral 720 ml # Voids 6 # Bowel Movements 1 Result Diagram: 11/24/16 0929 11/23/16 0550 Objective Remarks GENERAL: Sitting up on edge of bed. On oxygen. Appears comfortable. Alert and oriented 3. at bedside. no Change on exam. SKIN: Warm and dry. HEAD: Normocephalic. EYES: No scleral icterus. No injection or drainage. NECK: Supple, trachea midline. No JVD. CARDIOVASCULAR: Regular rate and rhythm without murmurs, gallops, or rubs. RESPIRATORY: Breath sounds equal bilaterally. No accessory muscle use. GASTROINTESTINAL: Abdomen soft, non-tender, nondistended. MUSCULOSKELETAL: No cyanosis, or edema. BACK: Nontender without obvious deformity. No CVA tenderness. A/P Assessment and Plan //GI bleeding with melena and black stools. Symptoms ongoing for 3 weeks as per the patient. Hemoglobin is 8. He is hemodynamically stable. We'll transfuse 1 unit packed red blood cells given his cardiac history. H&H every 6 hours. Consult GI. Protonix drip. He does have history of peptic ulcer disease with hemoglobin down to 5 in the past. Obviously we'll have to hold aspirin and Plavix at this time. Clear liquid diet. 11/23. Appreciate gastroenterology assistance. Continue to monitor hemoglobin -EGD with no source of bleeding found. -Barium enema with diverticulosis. It is likely patient's source of bleeding. = Hemoglobin stable off of that coagulation. We'll continue aspirin, hold off on Plavix until follow-up with primary care, cardiology. Increase iron. denies that he has any issues with constipation. //Type 2 diabetes - with hyperglycemia. Given 5 units of regular insulin in the ED. We'll give Levemir 10 units subcutaneous twice a day to start now. Medium sliding scale insulin with Accu-Cheks. He is on u500 at home as well as Lantus. 11/23. Insulin adjusted. Continue to monitor glucose. = Glucose improved. Continue treatment at home //Coronary artery disease status post bypass - continue to hold aspirin and Plavix but continue Coreg. //Bovine aortic valve in 2008-hold aspirin. //COPD and chronic respiratory failure on 2 L oxygen continuously - continue O2. Duo nebs when necessary. //Chronic kidney disease - with possible acute kidney injury. We'll repeat BMP in the morning. //Anemia of acute blood loss due to GI bleeding. Monitor H&H every 6 hours. //Hypertension -continue home medications with hold parameters. //GERD - continue PPI. //CHF - avoid IV fluids. Monitor for any overload. He appears compensated. Last known echo was in 2008 showed preserved EF. //DVT prophylaxis with SCDs. Discharge Planning Discharge home with . Follow-up primary care and cardiology. Andrew Alanis MD Nov 25, 2016 08:55
--- NOTE | 2016-11-25 08:57 | HHI.DS ---
Discharge Summary Admission Date Nov 22, 2016 at 13:31 Discharge Date: Nov 24, 2016 Admitting Diagnosis gi bleed, diabetes poor control (1) GI bleeding ICD Code: K92.2 (2) CHF (congestive heart failure) ICD Code: I50.9 (3) Anemia due to acute blood loss ICD Code: D62 (4) CKD (chronic kidney disease) stage 3, GFR 30-59 ml/min ICD Code: N18.3 (5) KATHLEEN (acute kidney injury) ICD Code: N17.9 (6) DM type 2, uncontrolled, with renal complications ICD Code: E11.29 (7) CAD (coronary artery disease) ICD Code: I25.10 Procedures EGD. please see report. Brief History - From Admission This is a 71 year-old female with past medical history of coronary artery disease status post CABG, GI bleed, congestive heart failure, type 2 diabetes, COPD on 2 L oxygen continuously, bovine aortic valve replacement 2008 who presents with a history of melena and black stools ongoing for 3 weeks. It should be noted that the patient is an extremely poor historian. He states that his girlfriend knows most of his health issues. He's not sure why he was prompted to come to the ER today since this is she's been going on for 3 weeks. He denies any dizziness lightheadedness or syncope. Denies any hematemesis. He thinks he may have had a history of bleeding ulcers in the past. Per the ED physician discussion with his girlfriend, the patient has had GI bleed in the past with hemoglobin down to 5 and was placed on a PPI for a gastric ulcer. The patient states that his stool was runny. The patient states he has chronic shortness of breath but this is not worse than usual. The patient also had some cramping. Umbilical abdominal pain earlier today but this has resolved. Symptoms are moderate, no provocative or alleviating factors. CBC/BMP: 11/24/16 0929 11/23/16 0550 Significant Findings Laboratory Tests Test 11/22/16 11/22/16 11/22/16 11/23/16 11:00 14:16 20:11 01:47 White Blood Count 11.2 TH/MM3 (4.0-11.0) Red Blood Count 2.66 MIL/MM3 (4.50-5.90) Hemoglobin 8.2 GM/DL 8.2 GM/DL 8.8 GM/DL 8.9 GM/DL (13.0-17.0) (13.0-17.0) (13.0-17.0) (13.0-17.0) Hematocrit 25.2 % 25.4 % 26.6 % 27.4 % (39.0-51.0) (39.0-51.0) (39.0-51.0) (39.0-51.0) Neutrophils (%) (Auto) 80.9 % (16.0-70.0) Neutrophils # (Auto) 9.0 TH/MM3 (1.8-7.7) Sodium Level 133 MEQ/L (136-145) Chloride Level 91 MEQ/L (98-107) Blood Urea Nitrogen 29 MG/DL (7-18) Creatinine 1.70 MG/DL (0.60-1.30) Estimat Glomerular Filtration 40 ML/MIN (>89) Rate Random Glucose 665 MG/DL (74-106) Calcium Level 8.3 MG/DL (8.5-10.1) Alkaline Phosphatase 134 U/L (45-117) Albumin 2.7 GM/DL (3.4-5.0) Test 11/23/16 11/23/16 11/23/16 11/24/16 05:50 13:55 19:20 09:29 Hemoglobin 9.4 GM/DL 9.3 GM/DL 8.8 GM/DL 9.8 GM/DL (13.0-17.0) (13.0-17.0) (13.0-17.0) (13.0-17.0) Hematocrit 28.1 % 28.1 % 26.9 % 29.8 % (39.0-51.0) (39.0-51.0) (39.0-51.0) (39.0-51.0) Chloride Level 96 MEQ/L (98-107) Carbon Dioxide Level 34.9 MEQ/L (21.0-32.0) Blood Urea Nitrogen 25 MG/DL (7-18) Estimat Glomerular Filtration 55 ML/MIN (>89) Rate Random Glucose 355 MG/DL (74-106) Calcium Level 8.1 MG/DL (8.5-10.1) Red Blood Count 3.17 MIL/MM3 (4.50-5.90) Neutrophils (%) (Auto) 73.2 % (16.0-70.0) Neutrophils # (Auto) 7.8 TH/MM3 (1.8-7.7) Imaging Last Impressions Barium Enema 11/23/16 0000 Signed Impressions: Service Date/Time: November 11:11 - CONCLUSION: Colonic diverticulosis, especially sigmoid. No obstructing or polypoid lesions identified. Mild luminal narrowing in the sigmoid region. Herman Fish MD Chest X-Ray 11/22/16 0000 Signed Impressions: Service Date/Time: Tuesday, November 22, 2016 12:45 - CONCLUSION: 1. Cardiomegaly and chronic interstitial changes. No acute abnormality. Humza Omer MD Abdomen/Pelvis CT 11/22/16 0000 Signed Impressions: Service Date/Time: Tuesday, November 22, 2016 12:07 - CONCLUSION: 1. No definite abnormality to explain the patient's abdominal pain is identified. 2. No findings to indicate bowel obstruction are seen. Humza Omer MD Hospital Course Patient's hemoglobin was found to be low, however improved after 1 unit of PRBCs , holding aspirin and Plavix. Patient's strength improved. Hemoglobin remained stable. Patient underwent EGD with no acute sources of bleeding found. He underwent barium enema which showed diverticulosis, as likely source of bleeding. Iron was increased. Aspirin will be restarted. Plavix will be held until follow-up with primary care and cardiology. For problem-based summary for most recent progress note, please see below. //GI bleeding with melena and black stools. Symptoms ongoing for 3 weeks as per the patient. Hemoglobin is 8. He is hemodynamically stable. We'll transfuse 1 unit packed red blood cells given his cardiac history. H&H every 6 hours. Consult GI. Protonix drip. He does have history of peptic ulcer disease with hemoglobin down to 5 in the past. Obviously we'll have to hold aspirin and Plavix at this time. Clear liquid diet. 11/23. Appreciate gastroenterology assistance. Continue to monitor hemoglobin -EGD with no source of bleeding found. -Barium enema with diverticulosis. It is likely patient's source of bleeding. = Hemoglobin stable off of that coagulation. We'll continue aspirin, hold off on Plavix until follow-up with primary care, cardiology. Increase iron. denies that he has any issues with constipation. //Type 2 diabetes - with hyperglycemia. Given 5 units of regular insulin in the ED. We'll give Levemir 10 units subcutaneous twice a day to start now. Medium sliding scale insulin with Accu-Cheks. He is on u500 at home as well as Lantus. 11/23. Insulin adjusted. Continue to monitor glucose. = Glucose improved. Continue treatment at home //Coronary artery disease status post bypass - continue to hold aspirin and Plavix but continue Coreg. //Bovine aortic valve in 2008-hold aspirin. //COPD and chronic respiratory failure on 2 L oxygen continuously - continue O2. Duo nebs when necessary. //Chronic kidney disease - with possible acute kidney injury. We'll repeat BMP in the morning. //Anemia of acute blood loss due to GI bleeding. Monitor H&H every 6 hours. //Hypertension -continue home medications with hold parameters. //GERD - continue PPI. //CHF - avoid IV fluids. Monitor for any overload. He appears compensated. Last known echo was in 2008 showed preserved EF. //DVT prophylaxis with SCDs. Pt Condition on Discharge: Good Discharge Disposition: Discharge Home Discharge Time: > 30 minutes Discharge Instructions DIET: Follow Instructions for: Diabetic Diet Activities you can perform: Regular-No Restrictions Follow up Referrals: Cardiology - 1 Week Gastroenterology - 1 Week PCP Follow-up - 1 Week Changed Medications: Ferrous Sulfate (Ferrous Sulfate) 325 Mg Tab 325 MG PO BID Nutritional Supplement #30 Ref 0 TAB (Changed from: DAILY) Continued Medications: Amlodipine (Amlodipine) 10 Mg Tab 10 MG PO DAILY Blood Pressure Management #30 Ref 0 TAB Aspirin (Aspirin) 81 Mg Tabdr 81 MG PO DAILY TAB Atorvastatin (Atorvastatin) 20 Mg Tab 20 MG PO HS Cholesterol Management #30 Ref 0 TAB Cholecalciferol (Vitamin D3) 2,000 Unit Chew 2000 UNITS CHEW DAILY #1 BOTTLE Fluticasone-Vilanterol Inh (Breo Ellipta Inh) 200-25 Mcg/Act Inh 1 PUFF INH DAILY Use daily at the same time. #1 Ref 0 INHALER Furosemide (Furosemide) 20 Mg Tab 20 MG PO DAILY #30 Ref 0 TAB Insulin Glargine Inj (Lantus Inj) 1,000 Unit/10 Ml Vial 100 UNITS SQ HS Blood Sugar Management Ref 0 VIAL Metoprolol Succinate ER 24 HR (Toprol XL) 50 Mg Tab 75 MG PO DAILY #30 Ref 0 TAB Pantoprazole (Pantoprazole) 40 Mg Tab 40 MG PO DAILY Reflux #30 Ref 0 TAB ([humalog]) Discontinued Medications: Clopidogrel (Plavix) 75 Mg Tab 75 MG PO DAILY Blood Clot Prevention #30 Ref 0 TAB Andrew Alanis MD Nov 25, 2016 08:57
[2016-11-27 23:53] LABS: IGA SERUM 401 mg/dL (81-463); TISSUE TRANSGLUTAMINASE AB IGG ND U/mL (())
[2016-11-28 15:52] LABS: ENDOMYSIAL AB TITER ND (<1:5); TISSUE TRANSGLUTAMINASE AB 2 U/mL (())
[2016-11-29 23:52] LABS: MITOCHONDRIAL ABS LESS THAN 20.0 U (())
== END 2016-11-24 11:47 | disposition home or self-care (01) | DRG 378 ==
LOC: PHED 10:18 → PHEDA 13:31 → PH3B 16:21
PROVIDERS: ADMIT Internal Medicine; ATTEND Internal Medicine
PROC: 30233N1 Transfusion of Nonautologous Red Blood Cells into Peripheral Vein, Percutaneous Approach (ICD-10-PCS; 2016-11-22)
PROC: 0DJ08ZZ Inspection of Upper Intestinal Tract, Via Natural or Artificial Opening Endoscopic (ICD-10-PCS; principal; 2016-11-23 07:30)
DX: K57.31 Diverticulosis of large intestine without perforation or abscess with bleeding (principal); N17.9 Acute kidney failure, unspecified; J96.10 Chronic respiratory failure, unspecified whether with hypoxia or hypercapnia; B37.81 Candidal esophagitis; E11.22 Type 2 diabetes mellitus with diabetic chronic kidney disease; E11.65 Type 2 diabetes mellitus with hyperglycemia; I13.0 Hypertensive heart and chronic kidney disease with heart failure and stage 1 through stage 4 chronic kidney disease, or unspecified chronic kidney disease; I50.9 Heart failure, unspecified; D62 Acute posthemorrhagic anemia; Z68.44 Body mass index [BMI] 60.0-69.9, adult; K76.0 Fatty (change of) liver, not elsewhere classified; J44.9 Chronic obstructive pulmonary disease, unspecified; E78.5 Hyperlipidemia, unspecified; K21.9 Gastro-esophageal reflux disease without esophagitis; N18.3 Chronic kidney disease, stage 3 (moderate); K44.9 Diaphragmatic hernia without obstruction or gangrene; K29.70 Gastritis, unspecified, without bleeding; E66.01 Morbid (severe) obesity due to excess calories; I25.10 Atherosclerotic heart disease of native coronary artery without angina pectoris; Z99.81 Dependence on supplemental oxygen; Z79.02 Long term (current) use of antithrombotics/antiplatelets; Z95.5 Presence of coronary angioplasty implant and graft; Z95.2 Presence of prosthetic heart valve; Z95.1 Presence of aortocoronary bypass graft; Z86.73 Personal history of transient ischemic attack (TIA), and cerebral infarction without residual deficits; Z87.891 Personal history of nicotine dependence; Z79.4 Long term (current) use of insulin
CPT/HCPCS: 36430; 71010; 74177; 74270; 80048; 80053; 82784; 82948; 83516; 83520; 83690; 84080; 85014; 85018; 85025; 85610; 85730; 86256; 86850; 86900; 86901; 86920; 87328; 87329; 87493; 87506; 93005; C9113; J1815; J7030; P9016; Q9967